=== PATIENT | female | born 1970 | race African-American/Black ===

== ENCOUNTER → 2018-06-26 | Outpatient (CLI) | payer OTHER | LOC: RAD 14:14 | DX: Z12.31 Encounter for screening mammogram for malignant neoplasm of breast (principal) ==

== ENCOUNTER → 2018-07-02 | Outpatient (CLI) | payer OTHER | LOC: RAD 01:31 | DX: I65.23 Occlusion and stenosis of bilateral carotid arteries (principal); R92.2 Inconclusive mammogram ==

== ENCOUNTER → 2019-12-20 | Outpatient (CLI) | payer OTHER | LOC: RAD 14:27 | DX: B96.89 Other specified bacterial agents as the cause of diseases classified elsewhere (principal) ==

== ENCOUNTER 2020-07-21 09:50 | Inpatient (IN) | payer OTHER ==
[~2020-07-21] VITALS: Ht 172.7 cm; Wt 138.3 kg
[2020-07-21 09:59] VITALS: BP 132/81
[2020-07-21] MEDS ORDERED: PROTONIX40 M4 PO (10:09)
[2020-07-21 10:54] LABS: ABSOLUTE NEUTROPHILS 6.3 thou/uL (1.4-8.2); BASOPHILS 0.9 % (0.0-2.0); EOSINOPHILS 0.9 % (0.0-3.0); HEMATOCRIT 39.8 % (37.0-47.0); HEMOGLOBIN 13.2 gm/dL (12.0-15.0); MCH 30.4 pg (26.0-34.0); MCHC 33.2 g/dL (28.0-37.0); MCV 91.6 fL (80.0-100.0); MONOCYTES 8.2 % (1.0-8.0); RBC 4.35 mil/uL (4.20-5.00); RDW 14.1 % (10.5-14.5); WBC 9.2 thou/uL (4.0-11.0)
[2020-07-21 11:02] LABS: ANION GAP 13 mmol/L (7-16); BUN 8 mg/dL (7-18); CALCIUM 9.1 mg/dL (8.5-10.1); CHLORIDE 102 mmol/L (98-107); CO2 22 mmol/L (21-32); CREATININE 0.8 mg/dL (0.6-1.0); GLUCOSE 241 mg/dL (74-106); SODIUM 137 mmol/L (136-145)
[2020-07-21 11:03] LABS: POTASSIUM 3.7 mmol/L (3.5-5.1)
[2020-07-21 11:11] LABS: ALBUMIN 3.3 g/dL (3.4-5.0); SGOT 37 U/L (15-37); SGPT 46 U/L (30-65); TOTAL BILIRUBIN 0.9 mg/dL (0.2-1.0); TOTAL PROTEIN 7.4 g/dL (6.4-8.2); TROPONIN-I <0.06 ng/mL (<0.06)
[2020-07-21 11:53] LABS: MAGNESIUM 1.4 mg/dL (1.8-2.4)
[2020-07-21 12:31] LABS: PLATELET COUNT 196 thou/uL (150-400); PLATELET ESTIMATE NORMAL
--- NOTE | 2020-07-21 13:08 | EKG ---
[place] [address] 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1970 Requested By: Merced Sarabia Order Number: [id number] MD: Teofilo Rossi Measurements Intervals [place] Rate: 61 P: 42 NV: 361 QRS: -15 QRSD: 106 T: 45 QT: 296 QTc: 298 Interpretive Statements SINUS ARRHYTHMIA Ventricular trigeminy Probable left atrial enlargement Borderline left axis deviation Low voltage, precordial leads Probable anteroseptal infarct, old No previous ECG available for comparison Electronically Signed On 07-21-2020 13:07:49 CDT by Teofilo Rossi [email or web address] <ELECTRONICALLY SIGNED> By: Teofilo Rossi MD, [facility] 07/21/20 1307 1023 22 Teofilo Rossi MD, FACC /EPI
--- NOTE | 2020-07-21 14:33 | NUR ---
VERIFIED WITH PHARMACIST THAT MG AND CETRIAXONE ARE NOT COMPATIBLE. VERIFIED WITH PHARMACIST THAT CERFTIRAXONE AND AZITHROMYIN ARE NOT COMPATIBLE.
[2020-07-21 14:41] VITALS: BP 119/82
[2020-07-21 15:09] VITALS: BP 158/118
--- NOTE | 2020-07-21 17:14 | NUR ---
PT ADMITTED TO ROOM 355, PT ALERT AND ORIENTED X4, DENIES ANY CHEST PAIN, NAUSEA AND VOMITTING. UNIVERSAL BANKER PLACED ON PT, AFIB HR 80-90'S. ADMISSION AND ASSESSMENT COMPLETED SKIN INTACT. ON 2L OF OXYGEN DUE TOP SOB WITH EXXERTION. CONSENTS SIGNED BY PT. UP TO BED SIDE COMMODE INDEPENDENTLY. FALL PRECAUTIONS IN PLACE. DENIES ANY NEEDS AT THE MOMENT.
[2020-07-21 19:41] VITALS: BP 155/99
--- NOTE | 2020-07-21 23:11 | NUR ---
PT SECOND COVID PCR CAME BACK NEGATIVE. NOTIFIED ALL APPROPRIATE PARTIES.
[2020-07-22 01:06] LABS: GLYCOHEMOGLOBIN (HGB A1C) 10.3 % (4.8-5.6)
[2020-07-22 03:35] VITALS: BP 146/71
[2020-07-22 05:28] LABS: CALCIUM 8.6 mg/dL (8.5-10.1); CREATININE 0.8 mg/dL (0.6-1.0); POTASSIUM 3.2 mmol/L (3.5-5.1)
[2020-07-22 05:45] LABS: HEMATOCRIT 40.6 % (37.0-47.0); HEMOGLOBIN 13.3 gm/dL (12.0-15.0); MCH 30.6 pg (26.0-34.0); MCHC 32.7 g/dL (28.0-37.0); MCV 93.6 fL (80.0-100.0); RBC 4.34 mil/uL (4.20-5.00); RDW 14.1 % (10.5-14.5); WBC 9.8 thou/uL (4.0-11.0)
[2020-07-22 06:13] LABS: CHOLESTEROL 198 mg/dL (<200); HDL CHOLESTEROL 42 mg/dL (>40); LDL CHOLESTEROL 128 mg/dL (<100); SERUM ASSESSMENT Clear; TC:HDL 4.7 Ratio (Not establshd); TRIGLYCERIDE 140 mg/dL (<150); VLDL 28 mg/dL (<40)
--- NOTE | 2020-07-22 08:32 | 2DMMODE ---
[address] [address] 2 D/M-MODE ECHOCARDIOGRAM Name: BLAZE CADE Room #: 355-P [facility] M.R.#: [id number] Admission: 07/21/20 Attend Phys: Sunny Guo MD Discharge: Date of : 74 Report #: [id number] THIS REPORT FOR: cc: Ricky Mane,Teofilo Eng MD [facility] ~ APPROVED REPORT Study performed: 07/22/2020 07:35:33 EXAM: Comprehensive 2D, Doppler, and color-flow Echocardiogram Patient Location: Bedside Room #: 355 Status: routine BSA: 2.43 HR: 89 bpm BP: 146/71 mmHg Rhythm: Sinus arrhythmia/frequent PVCs Other Information Study Quality: Adequate Technically limited study due to morbid obesity. Indications ALDANA, chest tightness, CHF. Hx: HTN. 2D Dimensions RVDd: 35.49 mm IVSd: 10.52 (7-11mm) LVOT Diam: 20.84 (18-24mm) LVDd: 49.34 mm PWd: 10.57 (7-11mm) Ascending Ao: 37.19 (22-36mm) LVDs: 39.10 (25-40mm) Aortic Root: 34.11 mm Volumes Left Atrial Volume (Systole) Single Plane 4CH: 47.73 mL Single Plane 2CH: 113.34 mL LA ESV Index: 33.00 mL/m2 Aortic Valve AoV Peak Timbo.: 1.27 m/s AO Peak Gr.: 6.42 mmHg LVOT Max P.14 mmHg LVOT Max V: 0.73 m/s [facility] [email or web address] [address] 2 D/M-MODE ECHOCARDIOGRAM Name: BLAZE CADE Room #: 355-[facility]#: [id number] Admission: 07/21/20 Attend Phys: Sunny Guo MD Discharge: Date of : 74 Report #: [id number] SHEFALI Vmax: 1.97 cm2 Mitral Valve E/A Ratio: 1.3 MV Decel. Time: 202.46 ms MV E Max Timbo.: 1.02 m/s MV A Timbo.: 0.80 m/s MV PHT: 58.71 ms IVRT: 55.36 ms Pulmonary Valve PV Peak Timbo.: 0.86 m/s PV Peak Gr.: 2.93 mmHg Tricuspid Valve TR Peak Timbo.: 2.89 m/s TR Peak Gr.: 33.32 mmHg Left Ventricle The left ventricle is normal size. Mild basal septal hypertrophy is present. Left ventricular systolic function is mildly decreased. LVEF is 45%. Moderate diastolic dysfunction is present (pseudonormal filling). Right Ventricle Right ventricle is not well visualized. Atria Left atrium is mildly dilated. The right atrium size is normal. Aortic Valve Aortic valve is grossly normal. Mild aortic regurgitation. There is no aortic valvular stenosis. Mitral Valve The mitral valve is normal in structure. Moderate mitral regurgitation. Tricuspid Valve The tricuspid valve is normal in structure. Mild to moderate tricuspid regurgitation. Estimated PAP is 33mmHg plus the right atrial pressure. Pulmonic Valve Pulmonic valve is not well visualized. Trace pulmonic regurgitation. [facility] [address] [place] [address] 2 D/M-MODE ECHOCARDIOGRAM Name: [facility]ADE [facility] #: [facility]-P ADM IN M.R.#: [id number] Admission: 07/21/20 Attend Phys: Sunny Guo MD Discharge: Date of : 74 Report #: [id number] Great Vessels The aortic root is normal in size. The ascending aorta is normal in size. IVC is not well visualized. Pericardium There is no pericardial effusion. <Conclusion> Normal left ventricular size with mild basal hypertrophy Ejection fraction 45%, mild global hypokinesis Normal right ventricle size/function Normal atrial size Color-flow Doppler study was performed of the aortic/mitral/tricuspid/pulmonary valve Mild aortic valve insufficiency Mild to moderate mitral valve insufficiency Mild tricuspid valve insufficiency Pulmonary systolic pressure estimated at 33 mmHg Normal aortic root size No pericardial effusion <ELECTRONICALLY SIGNED> By: Teofilo Rossi MD, [facility] 07/22/20831 1 1 Teofilo Rossi MD, [facility] /INF
[2020-07-22 09:10] VITALS: BP 150/85
--- NOTE | 2020-07-22 12:54 | NUR ---
ORDERS RECEIVED FOR PT EVAL AND TREAT. Pt IS AO*4. REPORTING NO SOA. DENIED N/T. LIVES AT HOME WITH WITH 2 ARIEL AND 5 STEPS UP AND 6 STEPS DOWN WITH BILAT HR. Pt AMBULATED 30 FEET IN ROOM W/O DIFFICULTY, NO SOA OR BALANCE DEFICITS. HR 80s-90s. UNABLE TO GET SAT READING UNTIL RT ENTERED ROOM Pt HAS FAKE NAILS; SATS 96%. Pt IS NEWLY DIAGNOSED DIABETIC. EDUCATED Pt ON SYMPTOMS OF HYPO- AND HYPERGLYCEMIA AND INTROCUDING EXERCISE INTO HER DAILY LIFE SLOWLY AND MONITORING HER RESPONSE. Pt DENIED FURTHER PT NEEDS AT THIS TIME. ACUTE CARE TO SIGN OFF.
--- NOTE | 2020-07-22 13:47 | NUR ---
PT ON ROOM AIR NOW, UP AD MADHAVI TO THE BATHROOM. PT EDUCATED ON NEWLY DIAGNOSE DIABETES. PT DENIES CHEST PAIN, NAUSEA AND VOMITTING. HSUBAND IN THERE VISITING. WILL CONTINUE TO MONITOR
[2020-07-22 15:18] VITALS: BP 126/85
--- NOTE | 2020-07-22 16:32 | EKG ---
[address] [address] ELECTROCARDIOGRAM REPORT Name: BLAZE CADE Room #: 355- ADM IN M.R.#: [id number] Admission: 07/21/20 Attend Phys: Sunny Guo MD Discharge: Date of : 74 Report #: [id number] 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1970 Requested By: Teofilo Rossi Order Number: [id number] MD: Washington Epperson Measurements Intervals [place] Rate: 94 P: 163 MA: 235 QRS: 3 QRSD: 105 T: 59 QT: 411 QTc: 515 Interpretive Statements Sinus or ectopic atrial rhythm Borderline prolonged MA interval Anterolateral infarct, age indeterminate Prolonged QT interval Compared to ECG 07/21/2020 10:23:44 Ectopic atrial rhythm now present Prolonged QT interval now present Ventricular premature complex(es) no longer present Electronically Signed On 07-22-2020 16:32:14 CDT by Washington Epperson [email or web address] <ELECTRONICALLY SIGNED> By: Washington Epperson MD, [facility] 07/22/20 1632 1422 1422 Washington Epperson MD, [facility] /EPI
[2020-07-22 20:01] VITALS: BP 120/75
[2020-07-23 05:30] VITALS: BP 118/67
[2020-07-23 05:46] LABS: HEMATOCRIT 40.4 % (37.0-47.0); HEMOGLOBIN 13.1 gm/dL (12.0-15.0); MCH 30.3 pg (26.0-34.0); MCHC 32.4 g/dL (28.0-37.0); MCV 93.5 fL (80.0-100.0); RBC 4.32 mil/uL (4.20-5.00); WBC 9.6 thou/uL (4.0-11.0)
--- NOTE | 2020-07-23 06:22 | NUR ---
AT 0330 PT STATED SHE WAS HAVING SOME CHEST PAIN AND TROUBLE BREATHING. PUT PT ON 2L VIA NASAL CANNULA AND GAVE SOME ZOFRAN. 02 SATS WERE IN MID 90'S ON 2L. ON REASSESSMENT PT STATED PAIN AND BREATHING TROUBLES HAVE BEEN RELIEVED. WILL CONTINUE TO MONITOR SITUATION. PT HAD NO OTHER COMPLAINTS OVER THE SHIFT.
[2020-07-23 06:32] LABS: CALCIUM 8.9 mg/dL (8.5-10.1); CREATININE 0.9 mg/dL (0.6-1.0); POTASSIUM 3.2 mmol/L (3.5-5.1)
[2020-07-23 07:43] VITALS: BP 124/74
[2020-07-23] MEDS ORDERED: LIPITOR 20 MG T20 M1 PO (09:06)
[2020-07-23] MEDS ORDERED: METOPROLOL SUCC50 MG PO (09:07)
[2020-07-23] MEDS ORDERED: PRINIVIL20 MG PO (09:07)
[2020-07-23] MEDS ORDERED: ADULT LOW DOSE81 MG PO (09:07)
[2020-07-23] MEDS ORDERED: LASIX 40 MG TAB40 MG PO (09:08)
[2020-07-23] MEDS ORDERED: GLUCOPHAGE500 MG PO (09:08)
[2020-07-23] MEDS ORDERED: TRADJENTA5 MG PO (09:08)
[2020-07-23 12:03] VITALS: BP 124/74
== END 2020-07-23 15:31 | disposition home or self-care (01) | DRG 291 ==
LOC: ER 09:50 → 3W 14:12 → EROBS 14:12 → 3W 14:43
PROVIDERS: Emergency Medicine; Nurse Practitioner; ADMIT Hospitalist; ATTEND Hospitalist
DX: I11.0 Hypertensive heart disease with heart failure (principal); J96.01 Acute respiratory failure with hypoxia; I50.31 Acute diastolic (congestive) heart failure; Z20.822 Contact with and (suspected) exposure to COVID-19; E83.42 Hypomagnesemia; F12.90 Cannabis use, unspecified, uncomplicated; K21.9 Gastro-esophageal reflux disease without esophagitis; E78.5 Hyperlipidemia, unspecified; E87.6 Hypokalemia; G43.909 Migraine, unspecified, not intractable, without status migrainosus; Z79.82 Long term (current) use of aspirin; Z79.899 Other long term (current) drug therapy
CPT/HCPCS: 10879

== ENCOUNTER → 2020-09-09 | Outpatient (CLI) | payer OTHER ==
[~2020-09-09] MED LIST: ADULT LOW DOSE81 MG PO; GLUCOPHAGE500 MG PO; LASIX 40 MG TAB40 MG PO; LIPITOR 20 MG T20 M1 PO; METOPROLOL SUCC50 MG PO; PRINIVIL20 MG PO; PROTONIX40 M4 PO; TRADJENTA5 MG PO
== END ==
LOC: SJCVCIMAG 08:42
PROVIDERS: ATTEND Internal Medicine
DX: I44.0 Atrioventricular block, first degree (principal); I48.91 Unspecified atrial fibrillation; R00.0 Tachycardia, unspecified; I51.89 Other ill-defined heart diseases; R06.00 Dyspnea, unspecified; I42.9 Cardiomyopathy, unspecified; Z79.84 Long term (current) use of oral hypoglycemic drugs; Z79.899 Other long term (current) drug therapy; Z72.89 Other problems related to lifestyle

== ENCOUNTER → 2020-10-15 | Outpatient (CLI) | payer OTHER ==
[~2020-10-15] VITALS: Ht 172.7 cm; Wt 129.7 kg
[~2020-10-15] MED LIST changes: +AMIODARONE HCL400 MG PO; +CARVEDILOL12.5 MG PO; +DULOXETINE HCL30 MG PO; +ELIQUIS5 MG PO; +METFORMIN HCL500 M3 PO; +REMERON30 MG PO
[2020-10-15 07:29] VITALS: BP 101/70
--- NOTE | 2020-10-15 09:18 | TEE ---
[facility] Charlette Saldana [facility] [place] [address] TRANSESOPHAGEAL ECHOCARDIOGRAM Name: BLAZE CADE Room #: REG [facility]#: [id number] Admission: 10/15/20 Attend Phys: Teofilo Rossi MD, Discharge: Date of : 74 Report #: [id number] THIS REPORT FOR: cc: Ricky Mane,Teofilo Eng MD [facility] ~ APPROVED REPORT Study performed: 10/15/2020 07:41:13 EXAM: Comprehensive 2D, Doppler, and color-flow Echocardiogram Patient Location: Out-Patient Room #: 9 Status: routine BSA: 2.43 HR: 125 bpm BP: 96/68 mmHg Rhythm: Atrial Fibrillation Other Information Study Quality: Good Indications Atrial Fibrillation Echo Enhancing Agent Indication: Rule out Shunt Agent(s) / Amount(s) Used: Agitated Saline 7 cc Procedure After obtaining informed consent, patient underwent transesophageal echo in the [employer]. Type of Sedation : Conscious Sedation Sedation was administered by Nurse. Sedation start time: 0754 Case end Time: 0800 Sedation was achieved intravenously with: Versed (4.5 mg) Fentanyl (50 mcg) Transesophageal probe was inserted and advanced into esophagus without difficulty by Teofilo Rossi MD. Echo enhancement indication: R/O Septal defect. Echo enhancement agent administered: Agitated Saline The TRUE was performed without complications. Synchronized Cardioversion attempted: Unsuccessful 100 Joules X 1, [facility] [address] [address] TRANSESOPHAGEAL ECHOCARDIOGRAM Name: BLAZE CADE Room #: REG [facility]#: [id number] Admission: 10/15/20 Attend Phys: Teofilo Rossi, Discharge: Date of : 74 Report #: [id number] 150 Joules x 2, 200 Joules x 1 Throughout the procedure, the blood pressure, pulse oximetry, cardiac rhythm, and rate were monitored. The patient tolerated the procedure without adverse effects. Recovery from conscious sedation was uneventful and vital signs were stable. Left Ventricle The left ventricle is normal size. There is normal left ventricular wall thickness. Left ventricular ejection fraction is severely decreased. LVEF is 20-25%. Right Ventricle The right ventricle is normal size. Right ventricle is mildly hypokinetic. Atria Left atrium is dilated. Interatrial septum is intact without evidence of ASD or PFO. The right atrium size is normal. Aortic Valve The aortic valve is normal in structure. Mild aortic regurgitation. There is no aortic valvular stenosis. Mitral Valve The mitral valve is normal in structure. Moderate mitral regurgitation. No evidence of mitral valve stenosis. Tricuspid Valve The tricuspid valve is normal in structure. There is no tricuspid valve regurgitation noted. Pulmonic Valve The pulmonary valve is normal in structure. There is no pulmonic valvular regurgitation. Great Vessels The aortic root is normal in size. Pericardium There is no pericardial effusion. <Conclusion> SVT on presentation Consent was obtained After appropriate sedation esophageal probe was advanced without [facility] [address] [place] [address] TRANSESOPHAGEAL ECHOCARDIOGRAM Name: BLAZE CADE Room #: REG [facility]#: [id number] Admission: 10/15/20 Attend Phys: Teofilo Rossi, Discharge: Date of : 74 Report #: [id number] difficulty The left atrial appendage/moderate size no clot detected Mild to moderate left atrial enlargement Normal left ventricle size/wall thickness Ejection fraction 20-25% Trileaflet aortic valve, no insufficiency detected Normal mitral valve structure Moderate/central mitral valve insufficiency No tricuspid valve insufficiency No pericardial effusion No calcification proximal descending aorta Patient was shocked 100-150-1 50-200 J biphasic mode Unfortunately patient remains in SVT at rate of about 130 bpm Patient tolerated procedure well otherwise. <ELECTRONICALLY SIGNED> By: Teofilo Rossi MD, FACC 10/15/20917 7 7 Teofilo Rossi MD, FACC /INF
--- NOTE | 2020-10-15 10:27 | EKG ---
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1970 Requested By: Evens Coats Order Number: [id number] MD: Teofilo Rossi Measurements Intervals [place] Rate: 121 P: 0 DE: QRS: 17 QRSD: 100 T: 45 QT: 340 QTc: 483 Interpretive Statements Atrial tachycardia Ventricular premature complex Anterolateral infarct, age indeterminate Compared to ECG 07/22/2020 14:22:40 Ventricular premature complex(es) now present Ectopic atrial rhythm no longer present Prolonged QT interval no longer present Myocardial infarct finding still present Electronically Signed On 10-15-2020 10:27:22 CDT by Teofilo Rossi [email or web address] <ELECTRONICALLY SIGNED> By: Teofilo Rossi MD, FAC 10/15/20 1027 0845 0845 Teofilo Rossi MD, [facility] /EPI
--- NOTE | 2020-10-16 09:15 | HC ---
[facility] [place] [address] CONSULTATION Name: BLAZE CADE Room #: REG [facility].#: [id number] Admission: 10/15/20 Attend Phys: Teofilo Rossi MD, Discharge: Date of : 74 Report #: [id number] THIS REPORT FOR: cc: Ricky Mane,Evens Neal MD ~ DOC #: [id number] Evens Coats MD DATE OF SERVICE: 10/15/2020 CARDIOLOGY CONSULTATION REASON FOR CONSULTATION: SVT. HISTORY OF PRESENT ILLNESS: The patient is a 50-year-old female who follows with Dr. Rossi. She has recently been diagnosed with possible atrial flutter, started on anticoagulation, amiodarone, rate control medications. She has had an echocardiogram on 07/22/2020, showing EF of 45%. She had a nuclear stress test in 08/2020, showing a small anterolateral reversible defect. Also, has a history of hypertension, hyperlipidemia, GERD and migraine headaches. She presented today for attempted cardioversion which was unsuccessful x 4. I repeated an EKG which shows that she is likely either in an atypical atrial flutter versus an atrial tachycardia. She denies currently any chest pain or shortness of breath. She denies PND or orthopnea. She denies presyncope or syncope. I also discussed her case with her who is also in the room. PAST MEDICAL HISTORY: As above. SOCIAL HISTORY: Occasional marijuana. Occasional alcohol. FAMILY HISTORY: Noncontributory. ALLERGIES: None. MEDICATIONS: Have been reviewed including Eliquis, amiodarone, carvedilol. REVIEW OF SYSTEMS: A 12-point review of systems was performed. PHYSICAL EXAMINATION: VITAL SIGNS: Heart rate is in the 130s. Blood pressure within normal limits. Sats within normal limits. GENERAL: No acute distress. HEENT: Oropharynx clear. NECK: Supple. No thyromegaly. HEART: Regular rate and rhythm. LUNGS: Clear to auscultation bilaterally. [facility] [address] [place] [address] CONSULTATION Name: ARONRAJESHBLAZE Room #: REG [facility]#: [id number] Admission: 10/15/20 Attend Phys: Teofilo Rossi MD, Discharge: Date of : 74 Report #: [id number] ABDOMEN: Soft, nontender, nondistended. No hepatosplenomegaly. EXTREMITIES: No clubbing, cyanosis or edema. LABORATORY DATA: Within normal limits including CBC. Chemistry: Potassium 3.2, creatinine 0.9. ASSESSMENT AND PLAN: Supraventricular tachycardia, likely etiology of this is either an atypical atrial flutter versus an atrial tachycardia. Unsuccessful attempt at cardioversion x 4 despite antiarrhythmic drug therapies. I have discussed multiple options with the patient including rate control, rhythm control with continued amiodarone therapy versus an invasive procedure to see if we can find the source of this arrhythmia. We discussed the details of the ablation including the risks, which include but not limited to bleeding, vascular damage, stroke, KS, cardiac perforation, damage to the [place] conduction system requiring permanent pacemaker. Both she and her are amenable to an invasive strategy. I will have my nurse call them, and we will schedule this in the near future. We will treat this as a possible SVT ablation. She will not need a CT scan nor will she need a TRUE prior to the procedure. She will need to hold her anticoagulation 1 dose prior to the procedure. We will need to hold amiodarone for 1 week prior to the procedure and hold her carvedilol the morning of the procedure. MD JULIO CESAR Myers/CAL/NORMAN <ELECTRONICALLY SIGNED> By: Evens Coats MD 10/16/2015 0815 214 Evens Coats MD /lashawn
== END | disposition home or self-care (01) ==
LOC: CATH 06:36
PROVIDERS: ATTEND Internal Medicine
DX: I48.91 Unspecified atrial fibrillation (principal); I48.92 Unspecified atrial flutter; I08.0 Rheumatic disorders of both mitral and aortic valves; I10 Essential (primary) hypertension; E78.5 Hyperlipidemia, unspecified; K21.9 Gastro-esophageal reflux disease without esophagitis; G43.909 Migraine, unspecified, not intractable, without status migrainosus; Z98.890 Other specified postprocedural states; Z79.899 Other long term (current) drug therapy; Z79.01 Long term (current) use of anticoagulants

== ENCOUNTER 2020-12-21 06:42 | Inpatient (IN) | payer OTHER ==
[~2020-12-21] VITALS: Ht 172.7 cm; Wt 138.8 kg
[2020-12-21] VITALS (7 sets, daily range): BP systolic 113–1106; BP diastolic 66–84
[2020-12-21 08:29] LABS: ABSOLUTE NEUTROPHILS 4.5 thou/uL (1.4-8.2); BASOPHILS 0.6 % (0.0-2.0); EOSINOPHILS 1.7 % (0.0-3.0); HEMATOCRIT 38.2 % (37.0-47.0); HEMOGLOBIN 12.3 gm/dL (12.0-15.0); LYMPHOCYTES 30.8 % (24.0-44.0); MCHC 32.3 g/dL (28.0-37.0); POLYS 59.9 % (36.0-66.0); RBC 3.98 mil/uL (4.20-5.00); RDW 14.6 % (10.5-14.5); WBC 7.4 thou/uL (4.0-11.0)
[2020-12-21 08:47] LABS: CALCIUM 8.8 mg/dL (8.5-10.1); POTASSIUM 3.3 mmol/L (3.5-5.1)
[2020-12-21 08:51] LABS: ALBUMIN 3.6 g/dL (3.4-5.0); TOTAL BILIRUBIN 0.4 mg/dL (0.2-1.0); TOTAL PROTEIN 7.5 g/dL (6.4-8.2)
[2020-12-21 08:55] LABS: APTT 23.4 Seconds (24.5-32.8); PROTIME 10.4 Seconds (9.3-11.4)
[2020-12-21 09:21] LABS: LARGE PLATELETS FEW; PLATELET COUNT 140 thou/uL (150-400); PLATELET ESTIMATE NORMAL
--- NOTE | 2020-12-22 03:01 | NUR ---
ASSUMED PT CARE AT 1900, PT IS AWAKE, ALERT AND ORIENTED, ON BEDREST, GROIN SITE WITH DRAINAGE NOTED, BP STILL SOFT IN THE 80S SYSTOLIC, SOFT SHOE DANCER NOTIFIED, 250MLS OF NS BOLUS GIVEN, BP BETTER IN THE 90S SYSTOLIC AND MAP >70, SA ON TELE, DENIES CP OR SOB, GROIN SITE DRESSING CHNAGED AT 0000, DRESSING CDI, NO HEMATOMA, ASSESSMENTS CHARTED, PROGRESSING TOWARDS POC
--- NOTE | 2020-12-22 03:09 | NUR ---
ASSUMED PT CARE AT 1900, ALERT AND ORIENTED, SPOUSE AT BEDSIDE, PT R.GROIN SITE CDI, NO HEMATOMA, R.CHEST SITE DRESSING DRAINAGE NOTED, NO HEMATOMA, DENIES CP, ASSESSMENTS CHARTED, VSS, VPACED ON TELE WITH A BBB, WILL CONTINUE TO MONITOR
[2020-12-22 04:08] VITALS: BP 99/65
[2020-12-22 07:16] VITALS: BP 105/71
[2020-12-22 09:41] LABS: CALCIUM 8.3 mg/dL (8.5-10.1); CREATININE 1.4 mg/dL (0.6-1.0); POTASSIUM 4.1 mmol/L (3.5-5.1)
[2020-12-22 10:55] VITALS: BP 103/72
--- NOTE | 2020-12-22 14:13 | NUR ---
Nutrition: RECommend change diet to Heart healthy Carb controlled following procedure tomorrow.
[2020-12-22 15:08] VITALS: BP 103/72
[2020-12-22 19:33] VITALS: BP 118/74
[2020-12-23] VITALS (7 sets, daily range): BP systolic 107–1068; BP diastolic 59–100
[2020-12-23 03:15] LABS: ABSOLUTE NEUTROPHILS 10.5 thou/uL (1.4-8.2); BASOPHILS 0.3 % (0.0-2.0); EOSINOPHILS 0.1 % (0.0-3.0); HEMATOCRIT 38.1 % (37.0-47.0); HEMOGLOBIN 12.5 gm/dL (12.0-15.0); LYMPHOCYTES 19.2 % (24.0-44.0); MCH 31.7 pg (26.0-34.0); MCHC 32.9 g/dL (28.0-37.0); MCV 96.4 fL (80.0-100.0); MONOCYTES 6.9 % (1.0-8.0); PLATELET COUNT 123 thou/uL (150-400); POLYS 73.5 % (36.0-66.0); RBC 3.95 mil/uL (4.20-5.00); RDW 14.8 % (10.5-14.5); WBC 14.3 thou/uL (4.0-11.0)
[2020-12-23 03:31] LABS: CREATININE 1.3 mg/dL (0.6-1.0); POTASSIUM 4.2 mmol/L (3.5-5.1)
[2020-12-24 04:45] VITALS: BP 100/65
--- NOTE | 2020-12-24 04:47 | NUR ---
PT IS ALERT AND OREINTED X4. LUNGS ARE CLEAR ON ROOM AIR. PT GOT A PACEMAKER YESTERDAY MEDICCATED FOR PAIN ONCE COMPLAINTS OF SOME ACYNESS AND SORNESS NOTED. ABDOMEN IS SOFT ROUND AND BOWEL SOUNDS ACTIVE. UP AD MADHAVI VOID IN TOILET. NO CONCERNS OR ISSUES NOTED AT THIS TIME. CALL LIGHT WITHIN REACH IF NEEDS ASSISTANCE PER NURSING
[2020-12-24 07:45] VITALS: BP 123/86
--- NOTE | 2020-12-24 09:43 | NUR ---
DISCONTINUE IV AND TELE. RIGHT GROIN SITE CDI WITH NO HEMATOMA AND LEFT CHEST PP, SITE INTACT WITH NO DRAINAGE. WILL DISCHARGE TO HOME.
[2020-12-24 09:50] VITALS: BP 123/86
[2020-12-24 11:09] VITALS: BP 123/86
--- NOTE | 2020-12-28 15:14 | P ---
[facility] [place] [address] PROCEDURE REPORT Name: BLAZE CADE Room #: 210-P [facility] IN M.R.#: [id number] Admission: 12/21/20 Attend Phys: Evens Coats MD Discharge: 12/24/20 Date of : 74 Report #: [id number] THIS REPORT FOR: cc: Ricky Mane,Evens Neal MD ~ DATE OF SERVICE: 12/23/2020 BIVENTRICULAR PACEMAKER IMPLANTATION PREOPERATIVE DIAGNOSES: 1. Nonischemic cardiomyopathy. 2. Complete heart block. 3. [place] [employer] functional class II heart failure symptoms. HISTORY: The patient is a 50-year-old female with a nonischemic cardiomyopathy, EF of 40%, who has been in incessant SVT for several months despite medication therapy. 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 Temporary pacer was placed and she was monitored for 48 hours with no improvement in conduction, therefore she is here for biventricular pacemaker implantation given her decreased ejection fraction, anticipated need for 100% right ventricular pacing and [place] Heart Association functional class II heart failure symptoms. ANESTHESIA: The patient underwent MAC anesthesia with no anesthesia related complications. DESCRIPTION OF PROCEDURE: The patient underwent informed consent. We discussed the details of the procedure including the risks include but not limited to bleeding, infection, vascular damage, cardiac perforation, pneumothorax. She understood these risks and is willing to proceed. The patient was brought to the EP laboratory in a fasting and sedated state, prepped and draped in a sterile fashion. She underwent a venogram showing patency of left axillary vein. Next, I injected lidocaine at the incision site. Incision was made, pocket was created over the prepectoral fascia and access was obtained twice to left axillary vein x3 using the extrathoracic approach. Next, a lead was placed in the right ventricular apex and no lead was placed in the right atrial appendage. Both leads demonstrated adequate pacing and sensing thresholds. These leads were sutured to the prepectoral fascia. Next, I placed a coronary guide sheath into the right atrium and finding a coronary sinus was slightly challenging, but after about 10-15 minutes, I was able to localize this. I used a balloon to perform a venogram of the vein, which showed that there was a nice anterolateral branch. Prior to positioning the lead, we removed the temporary pacing lead that had been placed prior via the right subclavian approach. This was a [employer] lead. The suture sleeve was cut. [address] [address] PROCEDURE REPORT Name: BLAZE CADE Room #: 210-P [facility].#: [id number] Admission: 12/21/20 Attend Phys: Evens Coats MD Discharge: 12/24/20 Date of : 74 Report #: [id number] The lead screw was retracted and the lead was pulled from the subclavian position without any compromise to the other implanted leads. As such, I decided to proceed with the coronary sinus lead placement. Lead positioned into the anterolateral branch with adequate pacing and sensing thresholds and no diaphragmatic stimulation. The sheath was split and the lead remained in place. The lead was sutured to the prepectoral fascia. The pocket was irrigated with vancomycin. The leads were connected to the device. Tug test performed and then the pocket was closed in 2 layers with 2-0 for the deep layer, 3-0 for the middle layer, and surgical glue was placed on the skin. The patient awoke neurologically and hemodynamically intact. No complications and no significant bleeding. The implanted pacemaker was a myRete model number W4TR03, serial number [id number]. The atrial lead was a 5076, 45 cm, serial number [id number]. The ventricular lead was a 5076, 52 cm, serial number [id number]. The LV lead was a 4298, serial number [id number]. Atrial lead demonstrated a P-wave of 2.2 millivolts, pacing impedance 551 ohms, pacing threshold 1.25 volts at 0.4 milliseconds. The RV lead demonstrated R waves of 7.5 millivolts, pacing impedance of 665 ohms, pacing threshold 0.75 volts at 0.4 milliseconds. The LV lead demonstrated a pacing impedance of 988 ohms and a pacing threshold of 0.5 volts at 0.4 milliseconds. Pacing from LV1-LV2 pacing configuration. The device was programmed to the DDDR 60-130 mode. CONCLUSIONS: 1. Successful biventricular pacemaker implantation. 2. Successful explantation of a temporary pacing wire from the right subclavian position. <ELECTRONICALLY SIGNED> By: Evens Coats MD 12/28/20 1514 1243 2338 Evens Coats MD /nt
--- NOTE | 2020-12-29 08:44 | P ---
[facility] [place] [address] PROCEDURE REPORT Name: BLAZE CADE Room #: 210-P [facility] M.R.#: [id number] Admission: 12/21/20 Attend Phys: Evens Coats MD Discharge: 12/24/20 Date of : 74 Report #: [id number] THIS REPORT FOR: cc: Ricky Mane,Eevns Neal MD ~ DATE OF SERVICE: 12/21/2020 PREOPERATIVE DIAGNOSIS: Supraventricular tachycardia. POSTOPERATIVE DIAGNOSIS: Typical atrioventricular con reentrant tachycardia. HISTORY OF PRESENT ILLNESS: The patient is a 50-year-old female with a history of a nonischemic cardiomyopathy. EF has been as low as 20%, who recently underwent attempted cardioversion x 3 by my partner, which was unsuccessful. She was therefore discharged in SVT, presumed to be either atypical atrial flutter versus an atrial tachycardia. She was sent home on amiodarone and eventually converted to sinus rhythm. She is here today for EP study, possible ablation. PROCEDURES PERFORMED: 1. SVT ablation, CPT code 64595. 2. EP, left atrial pacing recording, CPT code 09850. 3. Program stimulation pacing after IV drug infusion, CPT code 39247. 4. The 3D mapping, CPT code 50946. 5. Temporary pacemaker insertion, CPT code 05214. DESCRIPTION OF PROCEDURE: The patient was brought to the EP laboratory in a fasting nonsedated state and prepped and draped in a standard fashion. I obtained access to the right femoral vein x 4 placing 8, two 6 and a 7-Nauruan short sheath using the modified Seldinger technique. Under fluoroscopy, 3 quadripolar catheters were placed at the HRA, His and RV positions and a decapolar catheter was placed easily in the coronary sinus. With catheter positioning, the patient went into SVT that appeared to be consistent with AV con reentrant tachycardia. While we continued to position catheters, this terminated the tachycardia. At baseline, the patient was in sinus rhythm with a sinus cycle length of 815 milliseconds, NJ interval 260 milliseconds, QRS duration 120 milliseconds, QT interval 465 milliseconds, AH interval 187 milliseconds, and HV interval 45 milliseconds. Again, with catheter placement, the patient was in SVT, tachycardia cycle length 460 milliseconds, septal VA time 35 milliseconds and the tachycardia terminated within A. Next, ventricular pacing was performed and VA block was noted at 370 milliseconds. VA ERP was noted at 340 milliseconds at a [address] cycle length. VA conduction was both midline and decremental. Next, I attempted to determine AV block, but again the patient went directly into SVT. Of note, with atrial pacing, the patient had a long NJ interval of 350 milliseconds, which prolonged [facility] [address] [place] [address] PROCEDURE REPORT Name: BLAZE CADE Room #: 210-P [facility] ..#: [id number] Admission: 12/21/20 Attend Phys: Evens Coats MD Discharge: 12/24/20 Date of : 74 Report #: [id number] to 450 milliseconds. Next, with single atrial extrastimuli at 400 milliseconds and [address] cycle length, the patient went right into AVNRT on the first attempt. The AVNRT would terminate with an A consistent with typical AV con reentry tachycardia. Again, basically any atrial pacing would induce AVNRT; however, I could not entrain the tachycardia. Therefore, isoproterenol infusion was started at 2 mcg per minute and now I could obtain a reproducible VAHV response. Isoproterenol was turned off. As such, a diagnosis of typical AV con reentry tachycardia was made. Based on these findings, the patient was prepped for an AVNRT ablation. Next, I removed my HRA catheter and placed a 4 mm [employer] Smith ablation catheter up into the right atrium via an SR0 sheath. A total of 3 lesions were performed and each was approximately 17 mm below the level of the His cloud. The first lesion resulted in no junctionals. The second lesion resulted in 3-5 junctional beats and then the third lesion resulted in 5 junctionals with a nonconducted beat when I came off. There was evidence of heart block. Ventricular pacing was performed and eventually the patient had a stable junctional rhythm. I turned back on the isoproterenol and conduction did not improve. The junctional rhythm was at a cycle length of 1230 milliseconds with a narrow QRS complex. We monitored for approximately 45 minutes to an hour and there was no improvement in the conduction and initially I suspected that her prolonged NJ interval was the result of her amiodarone, but it may have been that she had preexisting damage to her fast pathway prior to the ablation. As such, after speaking with her , I discussed that we need to put in a temporary pacing wire to monitor the rhythm for the next 48 hours to see if the amiodarone wearing off would help the situation and he was amenable to this. Therefore, the patient was prepped for a temporary pacemaker placement. I decided to perform the device from a right subclavian position. The patient was prepped and draped in standard fashion. Venogram was performed at the right subclavian vein, which was patent. I then obtained access to the right subclavian vein. I then placed a 6-Nauruan short sheath into the vessel and then positioned a Medtronic 5076, 52 cm lead, model number [id number] and positioned this into the right ventricular apex. This was then connected to an externalized pacemaker. There was an increase in the threshold. Therefore, I had to go back and reposition this lead with better R-wave and threshold. ____ lead was sutured to the skin and a Tegaderm was placed over the lead. Another Tegaderm was used to cover the pacemaker that was on the skin and she was left with a backup rate of VVI 60. CONCLUSION: 1. 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 2. Successful temporary pacemaker wire placement. PLAN: 1. The patient will be monitored in the CCU for 48 hours. We will stop all AV con blocking agents to see if there is any improvement in her underlying [facility] [address] [place] [address] PROCEDURE REPORT Name: BLAZE CADE Room #: 210-P [facility].#: [id number] Admission: 12/21/20 Attend Phys: Evens Coats MD Discharge: 12/24/20 Date of : 74 Report #: [id number] conduction. 2. If this does not improve, then plans will be to have her undergo a biventricular pacemaker given her known decreased ejection fraction. <ELECTRONICALLY SIGNED> By: Evens Coats MD 12/29/20 0844 [id number] Evens Coats MD /[email or web address]
== END 2020-12-24 11:45 | disposition home or self-care (01) | DRG 242 ==
LOC: CATH 06:42 → 2N 15:37
PROVIDERS: ADMIT Internal Medicine Cardiovascular Disease; ATTEND Internal Medicine Cardiovascular Disease
DX: I44.2 Atrioventricular block, complete (principal); I50.23 Acute on chronic systolic (congestive) heart failure; I42.8 Other cardiomyopathies; I47.1 Supraventricular tachycardia; E11.9 Type 2 diabetes mellitus without complications; I10 Essential (primary) hypertension; E78.5 Hyperlipidemia, unspecified; K21.9 Gastro-esophageal reflux disease without esophagitis; Z20.822 Contact with and (suspected) exposure to COVID-19
CPT/HCPCS: 10081; 62110; 62900; 65130; 70005